=== PATIENT | male | born 1990 | race Hispanic/Latino ===

== ENCOUNTER 2018-01-15 12:22 | Emergency (ER) | payer OTHER ==
[2018-01-15 13:53] LABS: #Eosinphils 0.1 thou/uL (0.0-0.7); #Lymphocytes 1.2 thou/uL (1.20-3.40); #Monocytes 0.4 thou/uL (0.11-0.59); #Neutrophils 3.4 thou/uL (1.40-6.50); %Basophils 0.8 % (0.0-1.0); %Eosinophils 1.8 % (0.0-10.0); %Lymphocytes 22.4 % (21.0-51.0); %Monocytes 8.5 % (0.0-10.0); %Neutrophils 66.5 % (42.0-75.0); Hemoglobin 14.4 g/dL (14.0-18.0); Mean Corpuscular HGB CONC 35.3 g/dL (32.0-36.0); Mean Corpuscular Hemoglobin 29.3 pg (27.0-31.0); Mean Platelet Volume 7.3 fL (7.4-10.4); Platelet Count 259 thou/uL (130-400); RBC Distribution Width 13.1 % (11.5-14.5); White Blood Cell (WBC) Count 5.1 thou/uL (4.8-10.8)
--- NOTE | 2018-01-15 14:10 | RAD ---
LEFT FOOT 3 VIEWS: Date: 01/15/18 HISTORY: Injury, left foot pain. FINDINGS/IMPRESSION: No fracture or dislocation is identified. POS: [facility]
--- NOTE | 2018-01-15 14:11 | RAD ---
LEFT LEG 2 VIEWS: Date: 01/15/18 HISTORY: Left leg injury and pain. FINDINGS/IMPRESSION: The left tibia and fibula are intact. No radiopaque foreign body is seen. POS: [facility]
[2018-01-15 14:14] LABS: ALT (SGPT) 25 U/L (8-55); AST (SGOT) 21 U/L (5-34); Albumin 4.2 g/dL (3.5-5.0); Alkaline Phosphatase 98 U/L (40-150); Anion Gap 13 mmol/L (10-20); BUN (Urea Nitrogen) 14 mg/dL (8.9-20.6); Bilirubin, Total 0.6 mg/dL (0.2-1.2); CK (CPK) 365 U/L (30-200); Calc. Creatinine Clearance 0 mL/min (70-130); Calcium 9.6 mg/dL (7.8-10.44); Carbon Dioxide 23 mmol/L (22-29); Chloride 103 mmol/L (98-107); Estimated GFR-MDRD Greater than 90; Globulin 3.6 g/dL (2.4-3.5); Glucose 89 mg/dL (70-105); Potassium 3.8 mmol/L (3.5-5.1); Protein, Total 7.8 g/dL (6.0-8.3); Sodium 135 mmol/L (136-145)
[2018-01-15] MEDS ORDERED: Piperacillin/Tazobactam 4.5 GM VIAL ONE (14:31)
[2018-01-15] MEDS ORDERED: Clindamycin/D5W 900 MG in Premix Bag 1 BAG IVPB SCH (15:30)
[2018-01-15] MEDS ORDERED: Bacitracin Zinc 1 Packet ONE (18:01)
== END 2018-01-15 18:07 | disposition home or self-care (01) ==
LOC: ERS 12:22
DX: L03.116 Cellulitis of left lower limb (principal); S81.812D Laceration without foreign body, left lower leg, subsequent encounter
CPT/HCPCS: 36415; 80053; 82550; 83605; 85025; 85652; 86140; 87040; 96365; 96366; 96367; 96368; J2543; J3370; J3490; J7050

== ENCOUNTER 2018-01-16 08:12 | Emergency (ER) | payer OTHER ==
[2018-01-16] MEDS ORDERED: Sodium Chloride 0.9% 100 ML ONE (09:26)
[2018-01-16] MEDS ORDERED: Piperacillin/Tazobactam 4.5 GM VIAL ONE (09:26)
[2018-01-16] MEDS ORDERED: Bacitracin Zinc 1 Packet ONE (12:10)
== END 2018-01-16 12:12 | disposition home or self-care (01) ==
LOC: ERS 08:12
DX: L03.116 Cellulitis of left lower limb (principal); S81.812D Laceration without foreign body, left lower leg, subsequent encounter
CPT/HCPCS: 96365; 96366; 96367; J2543; J3370; J7050

== ENCOUNTER 2018-01-20 14:02 | Outpatient (CLI) | payer OTHER ==
--- NOTE | 2018-01-20 15:50 | ULT ---
SOFT TISSUE ULTRASOUND OF THE LEFT LEG: CLINICAL HISTORY: Left leg injury with erythema and edema and pain. Open wound. FINDINGS: There is an elongated complex region of altered echotexture predominantly hypoechoic with internal ir regular increased echogenicity. This spans a craniocaudal length of approximately 11.8 cm. There is no significant interval discernible flow. IMPRESSION: Elongated complex fluid collection of the left leg soft tissues, which in the setting of injury would suggest hematoma. The possibility of superimposed complex fluid collection, i.e. abscess, is not ex cluded and should be correlated clinically to confirm resolution. POS: [facility]
== END 2018-01-20 14:03 | disposition home or self-care (01) ==
LOC: SCSULT 14:02
PROVIDERS: ATTEND Family Medicine
DX: S87.82XD Crushing injury of left lower leg, subsequent encounter (principal); S81.812D Laceration without foreign body, left lower leg, subsequent encounter; S83.8X2D Sprain of other specified parts of left knee, subsequent encounter
CPT/HCPCS: 76999